=== PATIENT | female | born 1990 | race Caucasian/White ===

== ENCOUNTER 2021-11-05 16:23 | Inpatient (IN) ==
[~2021-11-05 16:23] MED LIST: Buffered Lidocaine 1% SYRIN 1 ml INTRADERM ONE; Lactated Ringers 1000 ml BAG 1,000 ML IV ONE; Lactated Ringers 1000 ml BAG 1,000 ML IV SCH
[2021-11-05] MEDS ORDERED: Dinoprostone 10 MG VAG.SUPP VAGINAL ONE (18:02)
[2021-11-05 18:50] LABS: Urine Benzodiazepine Screen None Detected (None Detect); Urine Cannabinoids Screen None Detected (None Detect); Urine Opiates Screen None Detected (None Detect)
[2021-11-05] MEDS ORDERED: Promethazine INJ(RESTRICTED) 25 MG/ML 1 ml VIAL IM PRN (20:59)
[2021-11-05] MEDS ORDERED: Nalbuphine 10 MG/ML 1 ML VIAL IM PRN (20:59)
[2021-11-06] MEDS ORDERED: RHO D Immune Globulin (HUMAN) 300 MCG = 1,500 I.U. INJ IM PRN (00:30)
[2021-11-06] MEDS ORDERED: Witch Hazel PAD JAR TOPICAL PRN (00:30)
[2021-11-06] MEDS ORDERED: Oxytocin 10 UNITS/ML 1 ML VIAL IM ONE (00:30)
[2021-11-06] MEDS ORDERED: Dibucaine 1% OINT 28.35 GM TUBE PR PRN (00:30)
[2021-11-06] MEDS ORDERED: Lactated Ringers 1000 ml BAG 1,000 ML IV SCH (01:00)
[2021-11-06 01:54] LABS: Hematocrit 36 % (35-47); Hemoglobin 11.8 g/dL (12.0-16.0); Mean Corpuscular HGB Conc 33 g/dL (31-36); Mean Corpuscular Hemoglobin 29 pg (27-31); Mean Corpuscular Volume 88 fL (80-97); Mean Platelet Volume 9.6 fL (7.4-10.4); Platelet Count 198 10^3/uL (150-450); Red Blood Count 4.06 10^6 /uL (3.70-4.87); Red Cell Distribution Width 14 % (10-15); White Blood Count 22.6 10^3/uL (3.5-10.8)
[2021-11-06 02:48] LABS: ABS Basophils 0.2 10^3/ul (0-0.2); ABS Monocytes 0.9 10^3/ul (0-0.8); ABS Neutrophils 20.6 10^3/ul (1.5-7.7); Eosinophil % 0.1 %; Lymphocyte % 4.4 %
[2021-11-06] MEDS ORDERED: Phenylephrine 40 mcg/mL 10mL (400mcg) SYRINGE ONE (19:14)
[2021-11-07 06:41] LABS: ABS Basophils 0.1 10^3/ul (0-0.2); ABS Eosinophils 0.1 10^3/ul (0-0.6); ABS Lymphocytes 2.8 10^3/ul (1.0-4.8); ABS Monocytes 0.8 10^3/ul (0-0.8); ABS Neutrophils 10.7 10^3/ul (1.5-7.7); Eosinophil % 0.8 %; Hematocrit 36 % (35-47); Hemoglobin 11.7 g/dL (12.0-16.0); Lymphocyte % 19.2 %; Mean Corpuscular HGB Conc 33 g/dL (31-36); Mean Corpuscular Hemoglobin 29 pg (27-31); Mean Corpuscular Volume 88 fL (80-97); Mean Platelet Volume 9.3 fL (7.4-10.4); Platelet Count 205 10^3/uL (150-450); Red Blood Count 4.07 10^6 /uL (3.70-4.87); Red Cell Distribution Width 14 % (10-15); White Blood Count 14.4 10^3/uL (3.5-10.8)
[2021-11-08 09:47] VITALS: BP 119/69
== END 2021-11-08 12:27 | disposition home or self-care (01) | DRG 560 ==
LOC: MCHOBOUT 16:23 → MCHOB 17:17
PROVIDERS: ADMIT Midwife; ATTEND Midwife

== ENCOUNTER 2023-11-17 12:22 | Inpatient (IN) ==
[2023-11-17] MEDS ORDERED: Lidocaine 1% VIAL 10 MG/ML 30 ML VIAL INJ PRN (13:17)
[2023-11-17] MEDS ORDERED: RHO D Immune Globulin (HUMAN) 300 MCG = 1,500 I.U. INJ IM ONE (13:44)
[2023-11-17] MEDS ORDERED: Lactated Ringers 1000 ml BAG 1,000 ML IV SCH (14:00)
[2023-11-17] MEDS: Witch Hazel PAD JAR TOPICAL PRN (14:46)
[2023-11-17] MEDS: Dibucaine 1% OINT 28.35 GM TUBE PR PRN (14:46)
[2023-11-17 23:09] LABS: Urine Benzodiazepine Screen None Detected (None Detect); Urine Cannabinoids Screen None Detected (None Detect); Urine Opiates Screen None Detected (None Detect)
[2023-11-18 06:43] LABS: ABS Basophils 0.1 10^3/uL (0.0-0.1); ABS Eosinophils 0.2 10^3/uL (0.0-0.5); ABS Lymphocytes 2.2 10^3/uL (1.0-4.8); ABS Monocytes 0.8 10^3/uL (0.0-0.9); ABS Neutrophils 11.3 10^3/uL (1.5-7.6); Eosinophil % 1.1 %; Hematocrit 33.6 % (35-45); Hemoglobin 11.6 g/dL (11.5-14.3); Lymphocyte % 15.1 %; Mean Corpuscular Hemoglobin 29.9 pg (27-33); Mean Corpuscular Hgb Conc 34.5 g/dL (31-36); Mean Corpuscular Volume 86.8 fL (80-97); Mean Platelet Volume 9.6 fL (7.5-11.2); Platelet Count 188 10^3/uL (150-450); Red Blood Count 3.88 10^6/uL (3.63-4.92); Red Cell Distribution Width 13.4 % (12-17); White Blood Count 14.5 10^3/uL (3.8-11.8)
[2023-11-18] MEDS: Oxytocin 10 UNITS/ML 1 ML VIAL IM ONE (11:07)
[2023-11-18 11:59] VITALS: BP 121/44
[2023-11-18] MEDS: RHO D Immune Globulin (HUMAN) 300 MCG = 1,500 I.U. INJ IM ONE (14:07)
== END 2023-11-18 14:57 | disposition home or self-care (01) | DRG 560 ==
LOC: MCHOBOUT 12:22 → MCHOB 12:40
PROVIDERS: ADMIT Midwife; ATTEND Midwife